=== PATIENT | female | born 1955 | race Caucasian/White ===

== ENCOUNTER → 2022-10-04 | Outpatient (CLI) | payer MEDICARE ==
[2022-10-04 14:19] LABS: Basophils # (A) 0.04 X 10*3/uL (0.00-0.10); Basophils % (A) 0.5 %; Eosinophils # (A) 0.13 X 10*3/uL (0.04-0.35); Eosinophils % (A) 1.7 %; HCT 35.7 % (37.2-46.3); HGB 11.5 g/dL (12.0-15.0); Immature Grans, Automated 0.4 %; Lymphocytes # (A) 1.59 X 10*3/uL (0.90-5.00); Lymphocytes % (A) 20.7 %; MCH 30.7 pg (27.0-32.0); MCHC 32.2 g/dL (32.0-37.0); MCV 95.2 fL (80.0-97.0); Mean Platelet Volume 9.9 fL (9.5-12.2); Monocytes # (A) 0.85 X 10*3/uL (0.20-1.00); Monocytes % (A) 11.1 %; NRBC Per 100 WBC 0 /100 WBCS (0.0-0.0); Neutrophils # (A) 5.05 X 10*3/uL (1.80-7.70); Neutrophils % (A) 65.6 %; Platelet Count 336 X 10*3/uL (140-440); RBC 3.75 X 10*6/uL (4.10-5.20); RDW 12.3 % (11.5-14.5); WBC 7.69 X 10*3/uL (4.50-10.00)
[2022-10-04 14:47] LABS: ALT 22 U/L (8-44); AST 25 U/L (13-35); Albumin 4.6 g/dL (3.8-4.9); Albumin/Globulin Ratio 1.96 (1.60-3.17); Alkaline Phosphatase 91 U/L (41-126); BUN/Creat Ratio 30.82 Ratio (12.00-20.00); Blood Urea Nitrogen 18.4 mg/dL (9.0-27.0); Calcium 9.9 mg/dL (8.7-10.3); Carbon Dioxide 31.2 mmol/L (20.0-27.5); Chloride 97 mmol/L (96-109); Chol/HDL Ratio 2.68 Ratio; Globulin 2.4 g/dL (1.6-3.3); Glucose 103 mg/dL (70-110); LDL Cholesterol,Calculated 79.2 mg/dL (0.0-131.0); Magnesium 1.8 mg/dL (1.5-2.4); Non-African American GFR(CKD) 93.2 (60.0-200.0); Potassium 4.4 mmol/L (3.5-5.5); Sodium 139 mmol/L (135-145)
== END | disposition home or self-care (01) ==
LOC: LABWHC1 08:19
PROVIDERS: ATTEND Internal Medicine
DX: E78.5 Hyperlipidemia, unspecified (principal); M81.0 Age-related osteoporosis without current pathological fracture; K21.9 Gastro-esophageal reflux disease without esophagitis
CPT/HCPCS: 36415; 80053; 80061; 82306; 83735; 84443; 85025

== ENCOUNTER → 2022-10-09 | Outpatient (CLI) | payer MEDICARE ==
--- NOTE | 2022-10-09 09:30 | CTL ---
EXAMINATION TYPE: CT Low Dose Lung DATE OF EXAM ORDERED: 10/09/2022 HISTORY: 67-year-old female Z87.891 PERSONAL HISTORY OF NICOTINE DEPENDENCE. Former smoker with 40 pa ck-year history. Lung cancer screening CT DLP: 35.[address] CTDI: 1.1 mGy Automated exposure control for dose reduction was used. SCREENING VISIT: Baseline COMPARISON: None TECHNIQUE: Low dose computed tomography scan was performed through the chest with coronal and sagitta l reconstructions. CT DIAGNOSTIC QUALITY: Satisfactory FINDINGS: Heart is normal size with trace anterior pericardial fluid. LAD and RCA coronary calcifications are p resent. Aorta normal caliber with mild atherosclerotic arch calcifications and conventional arch vessel branc gigi anatomy. No thoracic lymphadenopathy by CT size criteria. Mild diffuse bronchial wall thickening. Moderate emphysematous change. Mild biapical pleural-parenchy mal scarring. 5 mm subpleural pulmonary nodule medial right upper lobe, axial image 34. 5 mm subpleural pulmonary nodule posterior right upper lobe, axial image 45 No consolidation or pleural effusion. Nonspecific 8 mm nodularity left adrenal gland. Twelve-month follow-up can be performed. Mild atheros clerotic calcifications abdominal aorta. Bones: Multiple levels of vertebroplasty change. Mild superior endplate deformities of T10, T11, T12 are age indeterminate, probably chronic and should be correlated clinically. Accentuated lower thorac ic kyphosis. IMPRESSION: 1. LungRADS 2, benign. A couple 5 mm subpleural pulmonary nodules on the right on baseline screening may relate to pleural parenchymal scarring. 2. COPD with moderate emphysema. 3. LAD and RCA coronary artery calcifications. 4. A nonspecific 8 mm nodule of the left adrenal gland. Statistically represents a benign adrenal abhijit noma. This should be reassessed at the patient's twelve-month follow-up. CT LUNG RAD AND CT CHEST RECOMMENDATION: Lung-Rad 2 Benign Appearance or Behavior: Continue annual sc reening with LDCT in 12 months. S Modifier (other clinically significant findings): S, small left adrenal nodule as above.
== END | disposition home or self-care (01) ==
LOC: RADCTMAIN 08:25
PROVIDERS: ATTEND Internal Medicine
DX: Z12.2 Encounter for screening for malignant neoplasm of respiratory organs (principal); J43.9 Emphysema, unspecified; R91.8 Other nonspecific abnormal finding of lung field; I25.10 Atherosclerotic heart disease of native coronary artery without angina pectoris; D35.02 Benign neoplasm of left adrenal gland; Z87.891 Personal history of nicotine dependence
CPT/HCPCS: 71271

== ENCOUNTER → 2023-02-18 | Outpatient (CLI) | payer MEDICARE ==
[2023-02-18 22:05] LABS: HCT 34.9 % (37.2-46.3); HGB 11.4 d/dL (12.0-15.0); MCH 30.3 pg (27.0-32.0); MCHC 32.7 d/dL (32.0-37.0); MCV 92.8 FL (80.0-97.0); Mean Platelet Volume 9.2 FL (9.5-12.2); NRBC Per 100 WBC 0 X 10*3/uL (0.00-0.01); Platelet Count 405 X 10*3/uL (140-440); RBC 3.76 X 10*6/uL (4.10-5.20); RDW 12.1 % (11.5-14.5); WBC 17.03 X 10*3/uL (4.50-10.00)
[2023-02-18 22:30] LABS: Basophils # (A) 0.05 X 10*3/uL (0.00-0.10); Basophils % (A) 0.3 %; Crenated RBC 2+; Eosinophils # (A) 0.03 X 10*3/uL (0.04-0.35); Eosinophils % (A) 0.2 %; Lymphocytes # (A) 1.23 X 10*3/uL (0.90-5.00); Lymphocytes % (A) 7.2 %; Monocytes # (A) 1.85 X 10*3/uL (0.20-1.00); Monocytes % (A) 10.9 %; Neutrophils # (A) 13.79 X 10*3/uL (1.80-7.70); Neutrophils % (A) 80.9 %
[2023-02-19 01:10] LABS: ALT 22 U/L (8-44); AST 23 U/L (13-35); Albumin 4.4 d/dL (3.8-4.9); Albumin/Globulin Ratio 1.76 Ratio (1.60-3.17); Alkaline Phosphatase 77 U/L (41-126); Blood Urea Nitrogen 11.2 mg/dL (9.0-27.0); Calcium 9.6 mg/dL (8.7-10.3); Carbon Dioxide 31.3 mmol/L (21.6-31.8); Chloride 86 mmol/L (96-109); Globulin 2.5 d/dL (1.6-3.3); Glucose 116 mg/dL (70-110); Potassium 4.3 mmol/L (3.5-5.5); Sodium 127 mmol/L (135-145); Total Bilirubin <0.2 mg/dL (0.3-1.2); Total Protein 6.9 d/dL (6.2-8.2)
== END | disposition home or self-care (01) ==
LOC: LABWHC1 15:06
PROVIDERS: ATTEND Internal Medicine
DX: Z20.822 Contact with and (suspected) exposure to COVID-19 (principal); I10 Essential (primary) hypertension; J06.9 Acute upper respiratory infection, unspecified
CPT/HCPCS: 36415; 80053; 85025; 87636

== ENCOUNTER → 2023-06-25 | Outpatient (CLI) | payer MEDICARE ==
[2023-06-25 15:53] LABS: BUN/Creat Ratio 33.17 Ratio (12.00-20.00); Blood Urea Nitrogen 19.9 mg/dL (9.0-27.0); Calcium 9.5 mg/dL (8.7-10.3); Carbon Dioxide 33.6 mmol/L (21.6-31.8); Chloride 98 mmol/L (96-109); Glucose 89 mg/dL (70-110); Potassium 4.3 mmol/L (3.5-5.5); Sodium 139 mmol/L (135-145); Uric Acid 2.1 mg/dL (2.9-7.7)
== END | disposition home or self-care (01) ==
LOC: LABWHC1 08:03
PROVIDERS: ATTEND Internal Medicine
DX: E87.1 Hypo-osmolality and hyponatremia (principal); M10.9 Gout, unspecified
CPT/HCPCS: 36415; 80048; 83930; 83935; 84300; 84550

== ENCOUNTER → 2023-09-24 | Outpatient (CLI) | payer MEDICARE ==
[2023-09-24 14:16] LABS: Basophils # (A) 0.03 X 10*3/uL (0.00-0.10); Basophils % (A) 0.5 %; Eosinophils # (A) 0.22 X 10*3/uL (0.04-0.35); Eosinophils % (A) 3.3 %; HCT 36.4 % (37.2-46.3); HGB 11.2 g/dL (12.0-15.0); Lymphocytes # (A) 2.12 X 10*3/uL (0.90-5.00); Lymphocytes % (A) 32.2 %; MCH 30.4 pg (27.0-32.0); MCHC 30.8 g/dL (32.0-37.0); MCV 98.6 FL (80.0-97.0); Mean Platelet Volume 9.9 FL (9.5-12.2); Monocytes # (A) 0.85 X 10*3/uL (0.20-1.00); Monocytes % (A) 12.9 %; NRBC Per 100 WBC 0 X 10*3/uL (0.00-0.01); Neutrophils # (A) 3.34 X 10*3/uL (1.80-7.70); Neutrophils % (A) 50.8 %; Platelet Count 351 X 10*3/uL (140-440); RBC 3.69 X 10*6/uL (4.10-5.20); RDW 12.8 % (11.5-14.5); WBC 6.58 X 10*3/uL (4.50-10.00)
[2023-09-24 15:20] LABS: ALT 22 U/L (8-44); AST 28 U/L (13-35); Albumin 4.5 g/dL (3.8-4.9); Albumin/Globulin Ratio 2.25 Ratio (1.60-3.17); Alkaline Phosphatase 57 U/L (41-126); Blood Urea Nitrogen 12.3 mg/dL (9.0-27.0); Calcium 9.6 mg/dL (8.7-10.3); Carbon Dioxide 30.3 mmol/L (21.6-31.8); Chloride 100 mmol/L (96-109); Chol/HDL Ratio 2.11 Ratio; Glucose 99 mg/dL (70-110); LDL Cholesterol,Calculated 78.1 mg/dL (0.0-131.0); Potassium 4.3 mmol/L (3.5-5.5); Sodium 140 mmol/L (135-145); Total Bilirubin <0.2 mg/dL (0.3-1.2); Total Protein 6.5 g/dL (6.2-8.2); VLDL Calculation 14.48 mg/dL (5.00-40.00)
== END | disposition home or self-care (01) ==
LOC: LABWHC1 06:50
PROVIDERS: ATTEND Internal Medicine
DX: Z00.00 Encounter for general adult medical examination without abnormal findings (principal); M81.0 Age-related osteoporosis without current pathological fracture
CPT/HCPCS: 36415; 80053; 80061; 82306; 84443; 85025

== ENCOUNTER → 2023-10-12 | Outpatient (CLI) | payer MEDICARE ==
--- NOTE | 2023-10-16 07:27 | CTL ---
EXAMINATION TYPE: CT Low Dose Lung DATE OF EXAM: 10/12/2023 12:55 PM CLINICAL INDICATION:Female, 68 years old with history of Z12.2 lung cancer screening Z87.891 former s moker; Hx of tobacco use 1 pack per day x40 years, quit smoking May 2021. Hx of COPD. , history of to bacco use. COMPARISON: None. TECHNIQUE: Multiple axial non-contrast scans were obtained from approximately the lung apices through the upper abdomen. Coronal and sagittal reformatted images were obtained. Low dose technique was uti lized. CT DLP: 42 mGycm, Automated exposure control for dose reduction was used. CT Contrast: Contrast used: None Oral contrast used: None FINDINGS: ======== Lack of intravenous contrast and low dose technique limits the evaluation of the vascular and soft ti ssue structures. LUNGS: No evidence of pulmonary fibrosis. No evidence of focal consolidation, pneumothorax or pleural effusion. Moderately severe centrilobular emphysema Nodules: RUL: Superior segment, suspicious, new 9 mm x 5 mm nodule seen which has spiculated margins. Seri es 4, image 56. Another pleural-based 5 mm pleural-based nodule is seen on series 4, image 25 . Another pleural-based 5 mm nodule, series 4, image 37 RML: None. RLL: None. ARMINDA: None. LLL: None. AIRWAY: Patent and unremarkable. HEART: Size within normal limits. MEDIASTINUM: No gross evidence of adenopathy. VASCULATURE: No aortic aneurysm. MUSCULOSKELETAL: No acute osseous abnormalities SOFT TISSUES/LYMPH NODES: Unremarkable. LOWER NECK: No significant findings. UPPER ABDOMEN: No significant acute findings. Small left adrenal nodule, very likely benign IMPRESSION: 1. No clinically significant pulmonary nodules. CT LUNG RAD AND CT CHEST RECOMMENDATION: 4A. Suspicious. 3 month follow-up LD CT. Superior segment, suspicious, new 9 mm x 5 mm nodule seen which has spiculated margins. Series 4, berenice ge 56. S Modifier (other clinically significant findings): S coronary artery disease. Emphysema Recommend smoking cessation (if current smoker), or continuation of smoking cessation (if prior smoke r). Annual screening for lung cancer with low-dose computed tomography is recommended in adults ages 55 to 77 years who have a 30 pack-year smoking history and currently smoke or have quit within the pa st 15 years. Screening should be discontinued once a person has not smoked for 15 years or develops a health problem that substantially limits life expectancy or the ability or willingness to have curat ree lung surgery. Lung rads 2021 [email or web address]
== END | disposition home or self-care (01) ==
LOC: RADCTMAIN 12:19
PROVIDERS: ATTEND Internal Medicine Critical Care Medicine
DX: Z12.2 Encounter for screening for malignant neoplasm of respiratory organs (principal); Z87.891 Personal history of nicotine dependence
CPT/HCPCS: 71271

== ENCOUNTER → 2024-02-13 | Outpatient (CLI) | payer MEDICARE ==
[2024-02-13 13:08] LABS: HCT 32.9 % (37.2-46.3); HGB 10.3 g/dL (12.0-15.0); MCH 30.2 pg (27.0-32.0); MCHC 31.3 g/dL (32.0-37.0); MCV 96.5 FL (80.0-97.0); Mean Platelet Volume 9.9 FL (9.5-12.2); NRBC Per 100 WBC 0 X 10*3/uL (0.00-0.01); Platelet Count 326 X 10*3/uL (140-440); RBC 3.41 X 10*6/uL (4.10-5.20); RDW 12.5 % (11.5-14.5); WBC 4.99 X 10*3/uL (4.50-10.00)
[2024-02-13 13:56] LABS: ALT 21 U/L (8-44); AST 25 U/L (13-35); Albumin 4.1 g/dL (3.8-4.9); Albumin/Globulin Ratio 2.28 Ratio (1.60-3.17); Alkaline Phosphatase 51 U/L (41-126); Blood Urea Nitrogen 12.2 mg/dL (9.0-27.0); Calcium 9.3 mg/dL (8.7-10.3); Carbon Dioxide 33.1 mmol/L (21.6-31.8); Chloride 97 mmol/L (96-109); Chol/HDL Ratio 1.92 Ratio; Globulin 1.8 g/dL (1.6-3.3); Glucose 118 mg/dL (70-110); Potassium 4.4 mmol/L (3.5-5.5); Sodium 136 mmol/L (135-145); T4, Free (Free Thyroxine) 1.32 ng/dL (0.80-1.80); Total Bilirubin <0.2 mg/dL (0.3-1.2); Total Protein 5.9 g/dL (6.2-8.2); VLDL Calculation 12.18 mg/dL (5.00-40.00)
== END | disposition home or self-care (01) ==
LOC: LABWHC1 08:20
PROVIDERS: ATTEND Family Medicine
DX: I10 Essential (primary) hypertension (principal); E87.1 Hypo-osmolality and hyponatremia; J44.9 Chronic obstructive pulmonary disease, unspecified
CPT/HCPCS: 36415; 80053; 80061; 82306; 83036; 84439; 84443; 85027

== ENCOUNTER → 2024-02-18 | Outpatient (CLI) | payer MEDICARE ==
--- NOTE | 2024-02-18 18:00 | CTL ---
EXAMINATION TYPE: CT Low Dose Lung DATE OF EXAM ORDERED: 02/18/2024 HISTORY: Tobacco dependence, 40 pack-year history, quit smoking in May 2021. Lung cancer screenin g CT DLP: [address] CTDI: 0.8 mGy Automated exposure control for dose reduction was used. SCREENING VISIT: Third screening visit COMPARISON: CT Low Dose Lung 10/12/2023, 10/09/2022 TECHNIQUE: Low dose computed tomography scan was performed through the chest at 1 mm thick sections a nd reconstructed images in multiple planes at 1 mm and [address] DIAGNOSTIC QUALITY: Satisfactory FINDINGS: Nodules: Stable medial right upper lobe 4 mm subpleural pulmonary nodule (series 6, image 9). Stable posterior right upper lobe subpleural 4 mm pulmonary nodule (series 6, image 11). Previously seen spiculated right upper lobe nodular density is no longer visualized. No new or enlarg ing pulmonary nodules. LUNGS: COPD: Severity: Moderate Fibrosis: Severity: None Lymph nodes: None Other findings: Mild biapical pleural-parenchymal scarring. RIGHT PLEURAL SPACE: Effusion: None Calcification: None Thickening: None Pneumothorax: None LEFT PLEURAL SPACE: Effusion: None Calcification: None Thickening: None Pneumothorax: None HEART: Heart Size: Normal Coronary Calcification: LAD and RCA coronary calcifications are present. Pericardial Effusion: Trace anterior pericardial fluid. OTHER FINDINGS: Upper abdomen: Stable left gland subcentimeter nodule with a Hounsfield unit of 9 consistent with a b enign lipid rich adenoma. Bony thorax: Multiple levels of vertebroplasty changes are demonstrated. Mild or minimal superior end plate deformities of T10, T11, and T12. There is again 3 mm of retropulsion of the T12 vertebral body compression fracture. Accentuated lower thoracic kyphosis Supraclavicular region: None Other: Mild atherosclerotic calcification of the aorta. IMPRESSION: 1. Couple of stable pulmonary nodules measuring 4 mm. No new or enlarging pulmonary nodules. Previous ly seen spiculated right upper lobe nodular density is no longer visualized. 2. Moderate COPD changes. CT LUNG RAD AND CT CHEST RECOMMENDATION: Lung-Rad 2 Benign Appearance or Behavior: Continue annual sc reening with LDCT in 12 months. S Modifier (other clinically significant findings): None [facility], , 02/18/2024 5:57 PM
== END | disposition home or self-care (01) ==
LOC: RADCTMAIN 14:59
PROVIDERS: ATTEND Internal Medicine Critical Care Medicine
DX: R91.1 Solitary pulmonary nodule
CPT/HCPCS: 71271

== ENCOUNTER → 2024-09-28 | Outpatient (CLI) | payer MEDICARE ==
--- NOTE | 2024-09-29 09:55 | CA ---
Transthoracic Echo Report Name: Brittney Miranda Age: 69 Gender: F : 1955 Exam Date: 09/28/2024 13:11 Exam Location: [facility] Ht (in): 58 Wt (lb): 80 Ordering Physician: Alexy Paredes DO Attending/Referring Phys: Ram Press Operator Sarah Farias RDCS Procedure CPT: Indications: I10 HTN Cardiac Hx: Technical Quality: Fair Contrast 1: Total Dose (mL): Contrast 2: Total Dose (mL): MEASUREMENTS (Male / Female) Normal Values 2D ECHO LV Diastolic Diameter PLAX 4.0 cm 4.2 - 5.9 / 3.9 - 5.3 cm LV Systolic Diameter PLAX 2.2 cm IVS Diastolic Thickness 0.6 cm 0.6 - 1.0 / 0.6 - 0.9 cm LVPW Diastolic Thickness 0.6 cm 0.6 - 1.0 / 0.6 - 0.9 cm LV Relative Wall Thickness 0.3 RV Internal Dim ED PLAX 1.1 cm LVOT Diameter 1.7 cm LA Systolic Diameter LX 3.2 cm 3.0 - 4.0 / 2.7 - 3.8 cm LV Diastolic Volume MOD BP 34.4 cm??? 67 - 155 / 56 - 104 cm??? LV Systolic Volume MOD BP 12.4 cm??? 22 - 58 / 19 - 49 cm??? LV Ejection Fraction MOD BP 63.9 % >= 55 % LV Cardiac Index MOD BP 1485.5 cm???/min???m??? LV Diastolic Volume MOD 4C 36.4 cm??? LV Systolic Volume MOD 4C 16.4 cm??? LV Ejection Fraction MOD 4C 54.8 % LV Cardiac Index MOD 4C 1349.0 cm???/min???m??? LV Diastolic Length 4C 6.0 cm LV Systolic Length 4C 5.0 cm LV Diastolic Volume MOD 2C 30.7 cm??? LV Systolic Volume MOD 2C 9.3 cm??? LV Ejection Fraction MOD 2C 69.8 % LV Cardiac Index MOD 2C 1451.7 cm???/min???m??? LV Diastolic Length 2C 6.4 cm LV Systolic Length 2C 5.2 cm M-MODE Aortic Root Diameter MM 3.1 cm LA Systolic Diameter MM 3.0 cm LA Ao Ratio MM 1.0 AV Cusp Separation MM 1.3 cm DOPPLER Mitral E Point Velocity 63.2 cm/s Mitral A Point Velocity 82.6 cm/s Mitral E to A Ratio 0.8 MV Deceleration Time 240.8 ms MV E' Velocity 8.0 cm/s Mitral E to MV E' Ratio 7.9 TR Peak Velocity 314.4 cm/s TR Peak Gradient 39.5 mmHg Right Atrial Pressure 5.0 mmHg Pulmonary Artery Systolic Pressu 44.5 mmHg Right Ventricular Systolic Press 44.5 mmHg FINDINGS Left Ventricle Left ventricular ejection fraction is estimated at 55-60 %. Normal left ventricular systolic function with no obvious regional wall motion abnormalities. Left ventricular cavity size normal. Left ventricular wall thickness normal. Right Ventricle Mild right ventricular dilatation. Mild pulmonary hypertension. Right Atrium Normal right atrial size. Left Atrium Normal left atrial size. Mitral Valve Structurally normal mitral valve. Trace to mild mitral regurgitation. No mitral stenosis. Aortic Valve Trileaflet aortic valve. No aortic valve stenosis or regurgitation. Diffuse thickening (sclerosis) of the aortic valve cusps without reduced excursion. Tricuspid Valve Structurally normal tricuspid valve. Mild tricuspid regurgitation. No tricuspid stenosis. Pulmonic Valve Structurally normal pulmonic valve. Trace pulmonic regurgitation. No pulmonic stenosis. Pericardium No pericardial or pleural effusion. Aorta Normal size aortic root and proximal ascending aorta. CONCLUSIONS Diagnosis Hypertension Normal LV size and function No significant valvular abnormalities Previewed by: Dr. Charles Young MD (Electronically Signed) Final Date: 29 Sep 2024 09:54
== END | disposition home or self-care (01) ==
LOC: RADECHMAIN 12:56
PROVIDERS: ATTEND Internal Medicine Critical Care Medicine
DX: I10 Essential (primary) hypertension (principal)
CPT/HCPCS: 93306